=== PATIENT | male | born 2000 | race Caucasian/White ===

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

== ENCOUNTER 2022-10-10 14:28 | Emergency (ER) | payer BC ==
[~2022-10-10] VITALS: Ht 167.6 cm; Wt 77.1 kg
[2022-10-10 14:38] VITALS: BP_SYST 134
[2022-10-10] MEDS ORDERED: BELLADONNA ALKALOIDS/PHENOBARB 5 ML UDC PO ONE (15:30)
[2022-10-10] MEDS ORDERED: LIDOCAINE VISCOUS 2%, 15 ML UDC MM ONE (15:30)
[2022-10-10] MEDS ORDERED: MAG-AL HYDROX/SIMETH 30 ML UDC PO ONE (15:30)
[2022-10-10] MEDS ORDERED: DICYCLOMINE HCL 10 MG/5 ML SOLUTION PO ONE (16:00)
[2022-10-10 16:27] LABS: CALCIUM 8.6 mg/dL (8.4-11.0); CREATININE 1.32 mg/dL (0.55-1.30)
[2022-10-10 16:31] LABS: TOTAL BILIRUBIN 0.5 mg/dL (0.0-1.0)
[2022-10-10 16:34] LABS: BASOPHILS % (AUTO) 0.5 % (0.0-2.0); EOSINOPHILS # (AUTO) 0.1 K/uL (0.0-0.4); EOSINOPHILS % (AUTO) 2.3 % (0.0-4.0); HEMATOCRIT 37.4 % (36-54); HEMOGLOBIN 13.1 g/dL (14.0-18.0); LYMPHOCYTES # (AUTO) 1.7 K/uL (1.0-5.5); LYMPHOCYTES % (AUTO) 34.6 % (20.5-51.5); MEAN CORPUSCULAR HEMOGLOBIN 31 pg (27-31); MEAN CORPUSCULAR HGB CONC 35 % (32-36); MEAN CORPUSCULAR VOLUME 87 fL (79.0-98.0); MONOCYTES # (AUTO) 0.5 K/uL (0.0-1.0); MONOCYTES % (AUTO) 10.9 % (1.7-9.3); NEUTROPHILS # (AUTO) 2.5 K/uL (1.8-7.7); NEUTROPHILS % (AUTO) 51.7 % (40.0-70.0); PLATELET COUNT (AUTO) 169 K/uL (130-430); RED BLOOD CELL COUNT(AUTO) 4.29 MIL/uL (4.2-6.2); RED CELL DISTRIBUTION WIDTH 12.5 % (9.0-15.0); WHITE BLOOD COUNT (AUTO) 4.8 K/uL (4.5-11.0)
[2022-10-10] MEDS ORDERED: OMEP-268 PO (17:17)
[2022-10-10] MEDS ORDERED: ONDA-8 TL (17:17)
[2022-10-10 17:28] VITALS: BP_SYST 129
== END 2022-10-10 17:30 | disposition home or self-care (01) ==
LOC: SED 14:28
DX: B34.9 Viral infection, unspecified (principal); K21.9 Gastro-esophageal reflux disease without esophagitis; R10.13 Epigastric pain; R10.33 Periumbilical pain; R11.0 Nausea
CPT/HCPCS: 99284; 80053; 83690; 85025; 84484; 36415; 93005; J2001